=== PATIENT | female | born 1980 | race American Indian/Alaskan Native ===

== ENCOUNTER 2018-02-15 00:52 | Outpatient (CLI) | payer MEDICAID ==
[2018-02-15] MEDS ORDERED: LACTATED RINGERS 500 ML IV ONE (01:12)
[2018-02-15] MEDS ORDERED: MAGNESIUM SULFATE 4GM/100ML 4 GM/100 ML BAG IV ONE ×2 (01:23→01:39)
--- NOTE | 2018-02-15 01:28 | History and Physical Report ---
History of Present Illness Date of examination: 02/15/18 Chief complaint: Vaginal bleeding History of present illness: 37-year-old ? (set of triplets) at 27+6 weeks is brought by EMS, she is a drop-in patient with care at [facility]. Essential history is patient with known placenta previa who was recently admitted at [facility]; she was discharged yesterday morning. Per patient, she started bleeding last night and called EMS. No contractions noted. EMS staff estimate patient lost a liter of blood at home. In triage, patient's pad is dry. Her vitals are stable and heart tones within normal limits for gestational age. No contractions noted on the monitor Patient gives a history of completing steroid course at [facility] yesterday morning (02/14/18) She is status post 1 prior with no report of morbidly attached placenta Past History Past Medical History: no pertinent history Past Surgical History: section (# 1) [employer] History: denies: chlamydia, gonorrhea, hepatitis B, hepatitis C, herpes, HIV , syphilis, trichomonas Social history: single, full code. denies: smoking - Obstetrical History Expected Date of Delivery: 05/11/18 Actual Gestation: 27 Week(s) 6 Day(s) : 4 Para: 3 (a set of triplets) Number of Living Children: 6 Medications and Allergies Allergies Allergy/AdvReac Type Severity Reaction Status Date / Time No Known Allergies Allergy Unverified 02/15/18 01:08 Active Meds: Active Medications Lactated Ringer's (Lactated Ringers) 500 mls @ 999 mls/hr IV BOLUS ONE Stop: 02/15/18 01:42 Review of Systems Constitutional: no fever, no chills Eyes: no photophobia Cardiovascular: no chest pain, no orthopnea, no syncope, no lightheadedness, no shortness of breath, no dyspnea on exertion, no high blood pressure Respiratory: no cough, no cough with sputum, no shortness of breath Gastrointestinal: no abdominal pain, no nausea, no vomiting, no heartburn Genitourinary: no vaginal bleeding - Vital Signs Vital signs: Vital Signs Pulse BP 74 122/58 02/15/18 01:03 02/15/18 01:03 Temp Pulse Resp BP Pulse Ox 74 122/58 02/15/18 01:03 02/15/18 01:03 - Physical Exam Cardiovascular: Regular rate, Normal S1, Normal S2 Lungs: Positive: Clear to auscultation, Normal air movement Abdomen: Positive: normal appearance, soft. Negative: distention, tenderness, guarding, rigidity Genitourinary (Female): Positive: normal external genitalia Extremities: Positive: normal Results All other labs normal. Assessment and Plan A: 37 y/o at 27+6 wks with placenta previa -stable -Cat 1 tracing issues -Oral history of bleeding at home (~ 1 liter per EMS) -Pad dry 30 minutes now -s/p [place] course on 02/14/2018 -No report of morbidly adherent placenta -Patient insists on being transferred to [facility] P: -Will obtain cbc now -BPP now -[facility] protection -Will transfer to [facility] if patient remains stable and lab work acceptable -I have discussed with Dr. Osorio - Patient Problems (1) 27 weeks gestation of Current Visit: Yes Status: Acute (2) Placenta previa Current Visit: Yes Status: Acute
--- NOTE | 2018-02-15 01:54 | Ultrasound Report ---
FINAL REPORT PROCEDURE: US OB BPP WO NON-STRESS TECHNIQUE: Sonographic evaluation for breathing, movement, tone, and amniotic fluid volume was performed. CPT 06898 HISTORY: placenta previa COMPARISON: No prior studies are available for comparison. FINDINGS: Amniotic fluid volume: Normal-score 2. At least one vertical pocket > 2 cm or more in vertical axis. breathing: Normal-score 2. movement: Normal-score 2. tone: Normal. Score: 8 of 8. IMPRESSION: Normal biophysical profile.
[2018-02-15 02:34] VITALS: BP 110/59
[2018-02-15 02:37] LABS: Basophils % (Auto) 0.1 % (0.0-1.8); Hematocrit 28.7 % (30.3-42.9); Hemoglobin 9.6 gm/dl (10.1-14.3); Lymphocytes # (Auto) 1.6 K/mm3 (1.2-5.4); Lymphocytes % (Auto) 13.4 % (13.4-35.0); Mean Corpuscular HGB Conc 34 % (30-34); Mean Corpuscular Hemoglobin 30 pg (28-32); Mean Corpuscular Volume 90 fl (79-97); Monocytes # (Auto) 0.6 K/mm3 (0.0-0.8); Monocytes % (Auto) 5.5 % (0.0-7.3); Platelet Count 251 K/mm3 (140-440); Red Blood Count 3.18 M/mm3 (3.65-5.03); Red Cell Distribution Width 13.6 % (13.2-15.2)
== END 2018-02-15 02:40 | disposition other institution (70) ==
LOC: TRG 00:52
PROVIDERS: ATTEND Obstetrics & Gynecology Gynecology
DX: O47.03 False labor before 37 completed weeks of gestation, third trimester (principal); Z3A.28 28 weeks gestation of pregnancy
CPT/HCPCS: 36415; 59025; 76819; 82565; 85025; 86850; 86900; 86901; 96360; 96361; 96365; J3475